=== PATIENT | male | born 1985 | race Caucasian/White ===

== ENCOUNTER 2016-12-28 14:51 | Emergency (ER) | payer SELFPAY ==
[~2016-12-28] VITALS: Ht 320 cm; Wt 58.4 kg
[~2016-12-28 14:51] MED LIST: CIPRO500 MG PO; DIAZEPAM10 MG PO; FLAGYL500 MG PO; MEDROL DOSEPAK4 MG PO; NOHOMEMEDS; OXYCODONE HCL15 MG PO; TRAMADOL HCL50 MG PO; ULTRAM50 MG PO; ZOFRAN ODT4 MG PO
[2016-12-28] MEDS ORDERED: VALIUM5 MG PO (15:45)
[2016-12-28] MEDS ORDERED: PREDNISONE10 MG PO (15:45)
[2016-12-28 16:23] VITALS: BP 124/78
== END 2016-12-28 16:23 | disposition home or self-care (01) ==
LOC: EME 14:51
DX: S86.912A Strain of unspecified muscle(s) and tendon(s) at lower leg level, left leg, initial encounter (principal); M54.9 Dorsalgia, unspecified; X58.XXXA Exposure to other specified factors, initial encounter; F17.200 Nicotine dependence, unspecified, uncomplicated
CPT/HCPCS: 99281; 99283; J1100